=== PATIENT | female | born 1990 | race Two or more races ===

== ENCOUNTER → 2018-08-31 | Outpatient (CLI) | payer OTHER | END | disposition home or self-care (01) | LOC: LAB 11:01 | PROVIDERS: ATTEND Preventive Medicine Preventive Medicine/Occupational Environmental Medicine | DX: Z02.1 Encounter for pre-employment examination (principal) | CPT/HCPCS: 36415; 86706; 86735; 86762; 86765; 86787 ==

== ENCOUNTER → 2019-09-19 | Outpatient (CLI) | payer BC ==
[2019-09-19 15:49] LABS: Basophils # (auto) 0 uL; Basophils % (auto) 0.7 % (0.0-2.0); Eosinophils # (auto) 0.2 uL; Eosinophils % (auto) 2.4 % (0.0-7.0); Hematocrit 43.1 % (36.0-46.0); Hemoglobin 14.3 g/dL (12.2-16.2); Lymphocytes # (auto) 2.5 uL; Lymphocytes % (auto) 36.4 % (10.0-50.0); Mean Corpuscular Hemoglobin 28.2 pg (28.0-32.0); Mean Corpuscular Hgb Conc. 33.2 g/dL (32.0-36.0); Mean Corpuscular Volume 84.8 fL (80.0-100.0); Monocytes # (auto) 0.3 uL; Monocytes % (auto) 4.8 % (0.0-12.0); Neutrophils # (auto) 3.8 uL; Neutrophils % (auto) 55.7 % (37.0-80.0); Platelet Count (auto) 385 10^3/uL (140-450); Red Blood Cells 5.08 10^6/uL (4.0-5.20); Red Cell Distribution Width 12.9 % (11.8-14.3); White Blood Cell 6.8 10^3/uL (4.4-10.8)
[2019-09-19 16:05] LABS: Urine Bacteria FEW /hpf (None Seen); Urine Blood 1+ /uL (Negative); Urine Mucus FEW (None Seen); Urine Specific Gravity 1.028 (1.001-1.035); Urine WBC 2 /hpf (0 - 5)
[2019-09-19 16:08] LABS: Albumin 3.8 g/dL (3.4-5.0)
[2019-09-19 16:15] LABS: Bilirubin, Total 0.4 mg/dL (0.2-1.0); Calcium 9.1 mg/dL (8.5-10.1); Total Protein 8.6 g/dL (6.4-8.2)
== END | disposition home or self-care (01) ==
LOC: LAB 15:25
PROVIDERS: ATTEND Internal Medicine
DX: Z00.00 Encounter for general adult medical examination without abnormal findings (principal); J45.909 Unspecified asthma, uncomplicated
CPT/HCPCS: 36415; 80053; 80061; 81001; 82785; 84439; 84443; 85025; 85379; 85652

== ENCOUNTER → 2020-10-01 | Outpatient (CLI) | payer OTHER | END | disposition home or self-care (01) | LOC: LAB 08:09 | PROVIDERS: ATTEND Physician Assistant | DX: Z20.828 Contact with and (suspected) exposure to other viral communicable diseases (principal) | CPT/HCPCS: C9803; U0003 ==

== ENCOUNTER → 2023-10-14 | Outpatient (CLI) | payer BC ==
[2023-10-14 07:23] LABS: Urine Bacteria FEW /hpf (None Seen); Urine Blood TRACE /uL (Negative); Urine Clarity HAZY (Clear); Urine Color Yellow (Yellow); Urine Mucus FEW (None Seen); Urine Protein, UAD TRACE (Negative); Urine Specific Gravity 1.034 (1.001-1.035); Urine Urobilinogen Normal (Negative); Urine WBC 3 /hpf (0 - 5); Urine pH 5.5 (5.0-8.0)
[2023-10-14 07:24] LABS: Basophils % (auto) 0.6 % (0.0-2.0); Lymphocytes # (auto) 3.1 10 ^3/uL (0.4-5.4)
[2023-10-14 07:27] LABS: Basophils # (auto) 0 10 ^3/uL (0-0.2); Eosinophils # (auto) 0.1 10 ^3/uL (0-0.8); Eosinophils % (auto) 1.6 % (0.0-7.0); Hemoglobin 12.2 g/dL (12.2-16.2); Lymphocytes % (auto) 37.4 % (10.0-50.0); Mean Corpuscular Hemoglobin 24.8 pg (28.0-32.0); Mean Corpuscular Volume 77.5 fL (80.0-100.0); Monocytes # (auto) 0.5 10 ^3/uL (0-1.3); Monocytes % (auto) 5.6 % (0.0-12.0); Neutrophils # (auto) 4.6 10 ^3/uL (1.6-8.6); Neutrophils % (auto) 54.8 % (37.0-80.0); Red Cell Distribution Width 18.5 % (11.8-14.3); White Blood Cell 8.4 10^3/uL (4.4-10.8)
[2023-10-14 07:30] LABS: % Iron Saturation 11.8 % (15-50)
[2023-10-14 07:32] LABS: Alanine Aminotransferase 25 U/L (7-40); Albumin 4.7 g/dL (3.2-4.8); Alkaline Phosphatase 75 U/L (46-116); Anion Gap 11 (5-15); Aspartate Aminotransferase 17 U/L (13-40); BUN/Creatinine Ratio 11.4 (10.0-20.0); Blood Urea Nitrogen 8 mg/dL (9-23); Calcium 9.6 mg/dL (8.5-10.1); Carbon Dioxide 23 mmol/L (20-30); Chloride 103 mmol/L (98-107); Glucose 100 mg/dL (74-106); LDL Cholesterol 105 mg/dL (< 100); Potassium 3.5 mmol/L (3.5-5.1); Sodium 137 mmol/L (136-145); Triglycerides 58 mg/dL (< 150)
[2023-10-14 07:33] LABS: Bilirubin, Total 0.4 mg/dL (0.2-1.0); Cholesterol 157 mg/dL (< 200); HDL Cholesterol 48 mg/dL (40-59); Total Protein 7.9 g/dL (5.7-8.2)
[2023-10-14 07:35] LABS: Free T4 (Free Thyroxine) 1.11 ng/dL (0.89-1.76)
== END | disposition home or self-care (01) ==
LOC: LAB 06:59
PROVIDERS: ATTEND Nurse Practitioner Family
DX: E03.9 Hypothyroidism, unspecified (principal); E66.9 Obesity, unspecified; D50.9 Iron deficiency anemia, unspecified; E78.5 Hyperlipidemia, unspecified
CPT/HCPCS: 36415; 80053; 80061; 81001; 82306; 82672; 83540; 83550; 84144; 84403; 84439; 84443; 85025

== ENCOUNTER → 2023-10-19 | Outpatient (CLI) | payer BC | END | disposition home or self-care (01) | LOC: LAB 06:06 | PROVIDERS: ATTEND Obstetrics & Gynecology | DX: N91.2 Amenorrhea, unspecified (principal) | CPT/HCPCS: 36415; 84144; 84702 ==

== ENCOUNTER → 2023-10-21 | Outpatient (CLI) | payer BC | END | disposition home or self-care (01) | LOC: LAB 15:26 | PROVIDERS: ATTEND Obstetrics & Gynecology | DX: N91.2 Amenorrhea, unspecified (principal) | CPT/HCPCS: 36415; 84702 ==

== ENCOUNTER → 2023-11-20 | Outpatient (CLI) | payer BC ==
[2023-11-20 11:13] LABS: Basophils # (auto) 0 10 ^3/uL (0-0.2); Eosinophils # (auto) 0.1 10 ^3/uL (0-0.8); Eosinophils % (auto) 1.8 % (0.0-7.0); Lymphocytes # (auto) 2.5 10 ^3/uL (0.4-5.4); Monocytes # (auto) 0.4 10 ^3/uL (0-1.3); Monocytes % (auto) 5.4 % (0.0-12.0); Nucleated Red Blood Cells % 0.1 %; White Blood Cell 7.9 10^3/uL (4.4-10.8)
[2023-11-20 11:14] LABS: Basophils % (auto) 0.6 % (0.0-2.0); Hematocrit 41.1 % (36.0-46.0); Hemoglobin 13.5 g/dL (12.2-16.2); Lymphocytes % (auto) 31.8 % (10.0-50.0); Mean Corpuscular Hemoglobin 26.4 pg (28.0-32.0); Mean Corpuscular Volume 80.1 fL (80.0-100.0); Neutrophils # (auto) 4.8 10 ^3/uL (1.6-8.6); Neutrophils % (auto) 60.4 % (37.0-80.0); Red Blood Cells 5.13 10^6/uL (4.0-5.20); Red Cell Distribution Width 17.1 % (11.8-14.3)
[2023-11-20 11:37] LABS: Amphetamine Screen, Urine Neg (NEGATIVE); Barbiturate Scree,Urine Neg (NEGATIVE); Benzodiazephine Screen, Urine Neg (NEGATIVE); Cannabinoid Screen, Urine Neg (NEGATIVE); Cocaine Screen, Urine Neg (NEGATIVE); Opiate Scree,Urine Neg (NEGATIVE); Phencyclidine Screen, Urine Neg (NEGATIVE)
[2023-11-21 09:50] LABS: Varicella Zoster IgG Antibody 1056 index (Immune >165)
[2023-11-21 11:37] LABS: Treponema Pallidum Ab LC Non Reactive (Non Reactive)
[2023-11-22 04:07] LABS: Chlamydia Trachomatis, NAA Negative (Negative); Neisseria gonorrhoeae, NAA Negative (Negative)
== END | disposition home or self-care (01) ==
LOC: LAB 10:25
PROVIDERS: ATTEND Obstetrics & Gynecology
DX: Z31.430 Encounter of female for testing for genetic disease carrier status for procreative management (principal); Z36.0 Encounter for antenatal screening for chromosomal anomalies; Z34.80 Encounter for supervision of other normal pregnancy, unspecified trimester
CPT/HCPCS: 36415; 80307; 83036; 84112; 85025; 86703; 86762; 86787; 86850; 86900; 86901; 87086

== ENCOUNTER → 2023-12-31 | Outpatient (CLI) | payer BC ==
[2024-01-01 07:06] LABS: RPR Non Reactive (Non Reactive)
== END | disposition home or self-care (01) ==
LOC: LAB 13:07
PROVIDERS: ATTEND Obstetrics & Gynecology
DX: Z34.00 Encounter for supervision of normal first pregnancy, unspecified trimester (principal); Z3A.00 Weeks of gestation of pregnancy not specified
CPT/HCPCS: 36415; 86592; 87340

== ENCOUNTER → 2024-03-31 | Outpatient (CLI) | payer BC ==
[2024-03-31 07:58] LABS: Basophils # (auto) 0 10 ^3/uL (0-0.2); Basophils % (auto) 0.2 % (0.0-2.0); Eosinophils # (auto) 0.2 10 ^3/uL (0-0.8); Eosinophils % (auto) 1.8 % (0.0-7.0); Hematocrit 38.2 % (36.0-46.0); Hemoglobin 12.4 g/dL (12.2-16.2); Lymphocytes % (auto) 21.3 % (10.0-50.0); Mean Corpuscular Hemoglobin 27.1 pg (28.0-32.0); Mean Corpuscular Hgb Conc. 32.5 g/dL (32.0-36.0); Mean Corpuscular Volume 83.5 fL (80.0-100.0); Monocytes # (auto) 0.7 10 ^3/uL (0-1.3); Neutrophils # (auto) 6.6 10 ^3/uL (1.6-8.6); Neutrophils % (auto) 69.7 % (37.0-80.0); Red Blood Cells 4.57 10^6/uL (4.0-5.20); Red Cell Distribution Width 13.8 % (11.8-14.3); White Blood Cell 9.5 10^3/uL (4.4-10.8)
[2024-04-01 21:06] LABS: Chlamydia Trachomatis, NAA Negative (Negative); Neisseria gonorrhoeae, NAA Negative (Negative)
== END | disposition home or self-care (01) ==
LOC: LAB 07:37
PROVIDERS: ATTEND Obstetrics & Gynecology
DX: Z34.80 Encounter for supervision of other normal pregnancy, unspecified trimester (principal); Z72.51 High risk heterosexual behavior; Z3A.00 Weeks of gestation of pregnancy not specified
CPT/HCPCS: 36415; 82951; 85025

== ENCOUNTER 2024-04-29 08:00 | Observation (INO) | payer BC ==
[2024-04-29 09:43] LABS: Urine Bacteria FEW /hpf (None Seen); Urine Blood Negative /uL (Negative); Urine Clarity Turbid (Clear); Urine Color Light-Yellow (Yellow); Urine Protein, UAD Negative (Negative); Urine Specific Gravity 1.013 (1.001-1.035); Urine Sperm PRESENT /hpf (None Seen); Urine Urobilinogen Normal (Negative); Urine WBC 3 /hpf (0 - 5)
[2024-04-29 09:45] LABS: Protein, Urine 21.4 mg/dL (0.0-11.9)
[2024-04-29 09:48] LABS: Creatinine, Urine 75.4 mg/dL (30.0-125.0); Urine Protein/Creatinine Ratio 0.28
[2024-04-29 10:04] LABS: Basophils # (auto) 0 10 ^3/uL (0-0.2); Basophils % (auto) 0.3 % (0.0-2.0); Eosinophils # (auto) 0.1 10 ^3/uL (0-0.8); Eosinophils % (auto) 1.4 % (0.0-7.0); Hematocrit 36.5 % (36.0-46.0); Hemoglobin 12.4 g/dL (12.2-16.2); Lymphocytes # (auto) 1.8 10 ^3/uL (0.4-5.4); Lymphocytes % (auto) 21.2 % (10.0-50.0); Mean Corpuscular Hgb Conc. 33.8 g/dL (32.0-36.0); Mean Corpuscular Volume 82.9 fL (80.0-100.0); Monocytes # (auto) 0.5 10 ^3/uL (0-1.3); Monocytes % (auto) 5.3 % (0.0-12.0); Neutrophils # (auto) 6.1 10 ^3/uL (1.6-8.6); Neutrophils % (auto) 71.8 % (37.0-80.0); Nucleated Red Blood Cells % 0.1 %; Red Blood Cells 4.41 10^6/uL (4.0-5.20); White Blood Cell 8.5 10^3/uL (4.4-10.8)
[2024-04-29 10:18] LABS: Alanine Aminotransferase 13 U/L (7-40); Alkaline Phosphatase 102 U/L (46-116); Anion Gap 8 (5-15); Aspartate Aminotransferase 12 U/L (13-40); Calcium 9.6 mg/dL (8.7-10.4); Carbon Dioxide 25 mmol/L (20-30); Chloride 105 mmol/L (98-107); Glucose 83 mg/dL (74-106); Potassium 3.5 mmol/L (3.5-5.1); Sodium 138 mmol/L (136-145)
[2024-04-29 10:19] LABS: Albumin 3.8 g/dL (3.2-4.8); BUN/Creatinine Ratio 11.9 (10.0-20.0); Bilirubin, Total 0.3 mg/dL (0.2-1.0); Blood Urea Nitrogen < 5 mg/dL (9-23); INR 0.93 (0.9-1.15); Prothrombin Time 9.9 sec (9.3-11.8); Total Protein 6.6 g/dL (5.7-8.2)
== END 2024-04-29 10:52 | disposition home or self-care (01) ==
LOC: LDRP 08:00 → UNDOADMOB 08:00 → LDRP 08:06
PROVIDERS: ADMIT Obstetrics & Gynecology; ATTEND Obstetrics & Gynecology
DX: O24.419 Gestational diabetes mellitus in pregnancy, unspecified control (principal); Z3A.33 33 weeks gestation of pregnancy
CPT/HCPCS: 36415; 59025; 76818; 80053; 81001; 81002; 82570; 82948; 82962; 84156; 84550; 85025; 85610; 85730; 94760; G0378

== ENCOUNTER 2024-04-29 19:48 | Observation (INO) | payer BC ==
[2024-04-29 21:11] LABS: Urine Bacteria FEW /hpf (None Seen); Urine Blood Negative /uL (Negative); Urine Clarity Turbid (Clear); Urine Color Light-Yellow (Yellow); Urine Protein, UAD Negative (Negative); Urine Specific Gravity 1.016 (1.001-1.035); Urine Urobilinogen Normal (Negative); Urine WBC 3 /hpf (0 - 5)
[2024-04-29 21:22] LABS: Urine Sperm NONE SEEN /hpf (None Seen)
== END 2024-04-29 21:36 | disposition home or self-care (01) ==
LOC: LDRP 19:48
PROVIDERS: ADMIT Obstetrics & Gynecology; ATTEND Obstetrics & Gynecology
DX: O24.419 Gestational diabetes mellitus in pregnancy, unspecified control (principal); Z3A.33 33 weeks gestation of pregnancy
CPT/HCPCS: 81001; 81002; G0378

== ENCOUNTER 2024-05-01 08:11 | Observation (INO) | payer BC ==
[2024-05-01 09:05] LABS: Protein, Urine 25.9 mg/dL (0.0-11.9)
[2024-05-01 09:08] LABS: Creatinine, Urine 75.11 mg/dL (30.0-125.0); Urine Protein/Creatinine Ratio 0.34
[2024-05-01 09:11] LABS: Urine Bacteria FEW /hpf (None Seen); Urine Blood Negative /uL (Negative); Urine Clarity Turbid (Clear); Urine Color Light-Yellow (Yellow); Urine Protein, UAD TRACE (Negative); Urine Specific Gravity 1.015 (1.001-1.035); Urine Urobilinogen Normal (Negative); Urine WBC 4 /hpf (0 - 5)
[2024-05-01 09:43] LABS: Protein, Urine 14.5 mg/dL (0.0-11.9)
[2024-05-01] MEDS ORDERED: PREN-96 PO (10:37)
== END 2024-05-01 10:45 | disposition home or self-care (01) ==
LOC: LDRP 08:11
PROVIDERS: ADMIT Obstetrics & Gynecology; ATTEND Obstetrics & Gynecology
DX: O13.3 Gestational [pregnancy-induced] hypertension without significant proteinuria, third trimester (principal); Z3A.33 33 weeks gestation of pregnancy; Z79.899 Other long term (current) drug therapy; Z91.018 Allergy to other foods
CPT/HCPCS: 59025; 81001; 81002; 82570; 82948; 82962; 84156; 94760; G0378

== ENCOUNTER 2024-05-03 13:18 | Observation (INO) | payer BC ==
[~2024-05-03 13:18] MED LIST: PREN-96 PO
[2024-05-03 15:33] LABS: Basophils # (auto) 0 10 ^3/uL (0-0.2); Basophils % (auto) 0.3 % (0.0-2.0); Eosinophils # (auto) 0.2 10 ^3/uL (0-0.8); Eosinophils % (auto) 1.6 % (0.0-7.0); Hematocrit 37.1 % (36.0-46.0); Hemoglobin 12.4 g/dL (12.2-16.2); Lymphocytes % (auto) 21.8 % (10.0-50.0); Mean Corpuscular Hemoglobin 27.9 pg (28.0-32.0); Mean Corpuscular Hgb Conc. 33.5 g/dL (32.0-36.0); Mean Corpuscular Volume 83.2 fL (80.0-100.0); Monocytes # (auto) 0.6 10 ^3/uL (0-1.3); Monocytes % (auto) 6.3 % (0.0-12.0); Neutrophils # (auto) 6.5 10 ^3/uL (1.6-8.6); Nucleated Red Blood Cells % 0.1 %; Red Blood Cells 4.46 10^6/uL (4.0-5.20); Red Cell Distribution Width 14.2 % (11.8-14.3); White Blood Cell 9.3 10^3/uL (4.4-10.8)
[2024-05-03 15:47] LABS: INR 0.92 (0.9-1.15); Partial Thromboplastin Time 27.8 SEC (24.5-34.5); Prothrombin Time 9.8 sec (9.3-11.8)
[2024-05-03 15:51] LABS: Alanine Aminotransferase 11 U/L (7-40); Albumin 3.7 g/dL (3.2-4.8); Alkaline Phosphatase 103 U/L (46-116); Anion Gap 4 (5-15); Aspartate Aminotransferase 11 U/L (13-40); Calcium 9.8 mg/dL (8.7-10.4); Carbon Dioxide 25 mmol/L (20-30); Chloride 107 mmol/L (98-107); Glucose 69 mg/dL (74-106); Potassium 3.5 mmol/L (3.5-5.1); Sodium 136 mmol/L (136-145)
[2024-05-03 15:52] LABS: Bilirubin, Total 0.3 mg/dL (0.2-1.0); Total Protein 6.8 g/dL (5.7-8.2)
[2024-05-03 15:58] LABS: BUN/Creatinine Ratio 11.6 (10.0-20.0); Blood Urea Nitrogen < 5 mg/dL (9-23)
[2024-05-03 16:17] LABS: Urine Amorphous Crystal FEW /hpf (None Seen); Urine Bacteria FEW /hpf (None Seen); Urine Blood Negative /uL (Negative); Urine Clarity Clear (Clear); Urine Color Light-Yellow (Yellow); Urine Hyaline Cast FEW /lpf (0 - 2); Urine Protein, UAD Negative (Negative); Urine Specific Gravity 1.009 (1.001-1.035); Urine Urobilinogen Normal (Negative); Urine WBC 3 /hpf (0 - 5); Urine pH 7.5 (5.0-9.0)
[2024-05-03 16:30] LABS: Protein, Urine 8.2 mg/dL (0.0-11.9)
[2024-05-03 16:33] LABS: Creatinine, Urine 38.94 mg/dL (30.0-125.0); Urine Protein/Creatinine Ratio 0.21
== END 2024-05-03 17:15 | disposition home or self-care (01) ==
LOC: UNDOADMOB 13:18 → LDRP 13:18 → UNDODISOB 17:15
PROVIDERS: ADMIT Obstetrics & Gynecology; ATTEND Obstetrics & Gynecology
DX: O13.3 Gestational [pregnancy-induced] hypertension without significant proteinuria, third trimester (principal); O24.419 Gestational diabetes mellitus in pregnancy, unspecified control; O40.3XX0 Polyhydramnios, third trimester, not applicable or unspecified; Z3A.33 33 weeks gestation of pregnancy; Z91.018 Allergy to other foods
CPT/HCPCS: 36415; 59025; 76818; 80053; 81001; 81002; 82570; 84156; 84550; 85025; 85610; 85730; 94760; G0378

== ENCOUNTER 2024-05-06 08:27 | Observation (INO) | payer BC | END 2024-05-06 17:55 | disposition home or self-care (01) | LOC: UNDOADMOB 16:04 → LDRP 16:04 → UNDODISOB 17:55 | PROVIDERS: ADMIT Obstetrics & Gynecology; ATTEND Obstetrics & Gynecology | DX: O24.419 Gestational diabetes mellitus in pregnancy, unspecified control (principal); O40.3XX0 Polyhydramnios, third trimester, not applicable or unspecified; O13.3 Gestational [pregnancy-induced] hypertension without significant proteinuria, third trimester; Z3A.34 34 weeks gestation of pregnancy | CPT/HCPCS: 59025; 76818; 81002; 82948; 94760; G0378 ==

== ENCOUNTER 2024-05-10 11:02 | Observation (INO) | payer BC ==
[~2024-05-10] VITALS: Ht 157.5 cm; Wt 81.6 kg
[2024-05-10 13:17] LABS: Basophils # (auto) 0 10 ^3/uL (0-0.2); Basophils % (auto) 0.2 % (0.0-2.0); Eosinophils # (auto) 0.1 10 ^3/uL (0-0.8); Eosinophils % (auto) 1.5 % (0.0-7.0); Hematocrit 36.6 % (36.0-46.0); Hemoglobin 12.2 g/dL (12.2-16.2); Lymphocytes # (auto) 1.7 10 ^3/uL (0.4-5.4); Lymphocytes % (auto) 21.1 % (10.0-50.0); Mean Corpuscular Hemoglobin 27.6 pg (28.0-32.0); Mean Corpuscular Hgb Conc. 33.3 g/dL (32.0-36.0); Mean Corpuscular Volume 82.9 fL (80.0-100.0); Monocytes # (auto) 0.5 10 ^3/uL (0-1.3); Monocytes % (auto) 6.8 % (0.0-12.0); Neutrophils # (auto) 5.5 10 ^3/uL (1.6-8.6); Neutrophils % (auto) 70.4 % (37.0-80.0); Nucleated Red Blood Cells % 0.1 %; Red Blood Cells 4.41 10^6/uL (4.0-5.20); Red Cell Distribution Width 13.9 % (11.8-14.3); White Blood Cell 7.9 10^3/uL (4.4-10.8)
[2024-05-10 13:33] LABS: Protein, Urine 25.9 mg/dL (0.0-11.9)
[2024-05-10 13:35] LABS: Creatinine, Urine 61.86 mg/dL (30.0-125.0); Urine Protein/Creatinine Ratio 0.42
[2024-05-10 13:37] LABS: Alanine Aminotransferase 12 U/L (7-40); Albumin 3.6 g/dL (3.2-4.8); Alkaline Phosphatase 101 U/L (46-116); Anion Gap 7 (5-15); Aspartate Aminotransferase 11 U/L (13-40); Bilirubin, Total 0.3 mg/dL (0.2-1.0); Calcium 9.7 mg/dL (8.7-10.4); Carbon Dioxide 23 mmol/L (20-30); Chloride 108 mmol/L (98-107); Glucose 93 mg/dL (74-106); Potassium 3.3 mmol/L (3.5-5.1); Sodium 138 mmol/L (136-145); Total Protein 6.5 g/dL (5.7-8.2); Uric Acid 3.2 mg/dL (3.1-7.8)
[2024-05-10 13:39] LABS: BUN/Creatinine Ratio 12.5 (10.0-20.0); Blood Urea Nitrogen < 5 mg/dL (9-23)
[2024-05-10 13:42] LABS: INR 0.92 (0.9-1.15); Prothrombin Time 9.8 sec (9.3-11.8)
[2024-05-10] MEDS: POTASSIUM CHL 20 Meq TABLET PO ONE (14:34)
== END 2024-05-10 14:55 | disposition home or self-care (01) ==
LOC: LDRP 11:02 → UNDOADMOB 11:02 → LDRP 11:09 → UNDODISOB 14:55
PROVIDERS: ADMIT Obstetrics & Gynecology; ATTEND Obstetrics & Gynecology
DX: O24.419 Gestational diabetes mellitus in pregnancy, unspecified control (principal); O40.3XX0 Polyhydramnios, third trimester, not applicable or unspecified; O13.3 Gestational [pregnancy-induced] hypertension without significant proteinuria, third trimester; O14.93 Unspecified pre-eclampsia, third trimester; Z3A.34 34 weeks gestation of pregnancy
CPT/HCPCS: 36415; 59025; 76818; 80053; 81002; 82570; 84156; 84550; 85025; 85610; 85730; G0378

== ENCOUNTER 2024-05-12 09:24 | Observation (INO) | payer BC ==
[2024-05-12 13:15] LABS: Urine Bacteria FEW /hpf (None Seen); Urine Blood Negative /uL (Negative); Urine Clarity Turbid (Clear); Urine Color Yellow (Yellow); Urine Protein, UAD TRACE (Negative); Urine Specific Gravity 1.015 (1.001-1.035); Urine Urobilinogen Normal (Negative); Urine WBC 5 /hpf (0 - 5)
[2024-05-12 13:19] LABS: Protein, Urine 22.3 mg/dL (0.0-11.9)
[2024-05-12 13:22] LABS: Creatinine, Urine 95.02 mg/dL (30.0-125.0); Urine Protein/Creatinine Ratio 0.23
[2024-05-12 13:27] LABS: Protein, Urine 14.6 mg/dL (0.0-11.9)
[2024-05-12 14:18] LABS: 24 Hr. Total Protein, Urine 379.6 mg/24 Hr (<149.1)
[2024-05-12] MEDS ORDERED: LABE200T33 PO (15:03)
== END 2024-05-12 15:10 | disposition home or self-care (01) ==
LOC: LDRP 12:39 → UNDOADMOB 12:39 → LDRP 12:53 → UNDODISOB 15:10
PROVIDERS: ADMIT Obstetrics & Gynecology; ATTEND Obstetrics & Gynecology
DX: O13.3 Gestational [pregnancy-induced] hypertension without significant proteinuria, third trimester (principal); O24.419 Gestational diabetes mellitus in pregnancy, unspecified control; O40.3XX0 Polyhydramnios, third trimester, not applicable or unspecified; Z3A.35 35 weeks gestation of pregnancy
CPT/HCPCS: 59025; 76818; 81001; 81002; 82570; 82948; 84156; 94760; G0378

== ENCOUNTER 2024-05-13 08:21 | Observation (INO) | payer BC ==
[~2024-05-13 08:21] MED LIST changes: +LABE200T33 PO
== END 2024-05-13 10:35 | disposition home or self-care (01) ==
LOC: LDRP 09:21 → UNDOADMOB 09:21 → LDRP 09:28
PROVIDERS: ADMIT Obstetrics & Gynecology; ATTEND Obstetrics & Gynecology
DX: O13.3 Gestational [pregnancy-induced] hypertension without significant proteinuria, third trimester (principal); Z3A.35 35 weeks gestation of pregnancy
CPT/HCPCS: 59025; 81002; G0378

== ENCOUNTER 2024-05-16 08:05 | Observation (INO) | payer BC ==
[~2024-05-16] VITALS: Ht 63 cm; Wt 94.8 kg
== END 2024-05-16 09:43 | disposition home or self-care (01) ==
LOC: LDRP 08:05 → UNDOADMOB 08:05 → LDRP 08:18
PROVIDERS: ADMIT Obstetrics & Gynecology; ATTEND Obstetrics & Gynecology
DX: O13.3 Gestational [pregnancy-induced] hypertension without significant proteinuria, third trimester (principal); O24.419 Gestational diabetes mellitus in pregnancy, unspecified control; O40.3XX0 Polyhydramnios, third trimester, not applicable or unspecified; Z3A.35 35 weeks gestation of pregnancy
CPT/HCPCS: 59025; 76818; 81002; 82948; 82962; 94760; G0378

== ENCOUNTER 2024-05-19 08:04 | Observation (INO) | payer BC ==
[~2024-05-19] VITALS: Ht 160 cm; Wt 95.3 kg
== END 2024-05-19 09:35 | disposition home or self-care (01) ==
LOC: LDRP 08:04
PROVIDERS: ADMIT Obstetrics & Gynecology; ATTEND Obstetrics & Gynecology
DX: O24.419 Gestational diabetes mellitus in pregnancy, unspecified control (principal); O13.3 Gestational [pregnancy-induced] hypertension without significant proteinuria, third trimester; O40.3XX0 Polyhydramnios, third trimester, not applicable or unspecified; Z3A.36 36 weeks gestation of pregnancy
CPT/HCPCS: 59025; 76818; 81002; 82948; 82962; 94760; G0378

== ENCOUNTER 2024-05-23 08:20 | Observation (INO) | payer BC | END 2024-05-23 11:31 | disposition home or self-care (01) | LOC: LDRP 10:00 → UNDOADMOB 10:00 → LDRP 10:03 → UNDODISOB 11:31 | PROVIDERS: ADMIT Obstetrics & Gynecology; ATTEND Obstetrics & Gynecology | DX: O40.3XX0 Polyhydramnios, third trimester, not applicable or unspecified (principal); O13.3 Gestational [pregnancy-induced] hypertension without significant proteinuria, third trimester; O24.419 Gestational diabetes mellitus in pregnancy, unspecified control; Z3A.36 36 weeks gestation of pregnancy | CPT/HCPCS: 59025; 76818; 81002; 82948; 82962; 94760; G0378 ==

== ENCOUNTER → 2024-05-23 | Outpatient (CLI) | payer BC ==
[2024-05-23 12:09] LABS: Basophils # (auto) 0 10 ^3/uL (0-0.2); Basophils % (auto) 0.2 % (0.0-2.0); Eosinophils # (auto) 0.1 10 ^3/uL (0-0.8); Eosinophils % (auto) 0.9 % (0.0-7.0); Hematocrit 36.2 % (36.0-46.0); Hemoglobin 12.4 g/dL (12.2-16.2); Lymphocytes # (auto) 1.8 10 ^3/uL (0.4-5.4); Lymphocytes % (auto) 22.3 % (10.0-50.0); Mean Corpuscular Hemoglobin 28.6 pg (28.0-32.0); Mean Corpuscular Hgb Conc. 34.2 g/dL (32.0-36.0); Mean Corpuscular Volume 83.5 fL (80.0-100.0); Monocytes # (auto) 0.5 10 ^3/uL (0-1.3); Monocytes % (auto) 5.5 % (0.0-12.0); Neutrophils # (auto) 5.9 10 ^3/uL (1.6-8.6); Neutrophils % (auto) 71.1 % (37.0-80.0); Red Blood Cells 4.34 10^6/uL (4.0-5.20); Red Cell Distribution Width 14.7 % (11.8-14.3); White Blood Cell 8.3 10^3/uL (4.4-10.8)
[2024-05-24 08:06] LABS: RPR Non Reactive (Non Reactive)
[2024-05-24 13:07] LABS: Chlamydia Trachomatis, NAA Negative (Negative); Neisseria gonorrhoeae, NAA Negative (Negative)
== END | disposition home or self-care (01) ==
LOC: LAB 11:44
PROVIDERS: ATTEND Obstetrics & Gynecology
DX: Z11.3 Encounter for screening for infections with a predominantly sexual mode of transmission (principal); Z72.51 High risk heterosexual behavior
CPT/HCPCS: 36415; 85025; 86592

== ENCOUNTER 2024-05-26 11:09 | Observation (INO) | payer BC ==
[~2024-05-26] VITALS: Ht 162.6 cm; Wt 99.8 kg
== END 2024-05-26 13:03 | disposition home or self-care (01) ==
LOC: UNDOADMOB 11:09 → LDRP 11:09 → UNDODISOB 13:03
PROVIDERS: ADMIT Obstetrics & Gynecology; ATTEND Obstetrics & Gynecology
DX: O13.3 Gestational [pregnancy-induced] hypertension without significant proteinuria, third trimester (principal); O24.419 Gestational diabetes mellitus in pregnancy, unspecified control; O26.893 Other specified pregnancy related conditions, third trimester; R51.9 Headache, unspecified; Z3A.37 37 weeks gestation of pregnancy
CPT/HCPCS: 59025; 76818; 81002; 82948; 82962; 94760; G0378

== ENCOUNTER 2024-05-30 09:17 | Observation (INO) | payer BC | END 2024-05-30 12:26 | disposition home or self-care (01) | LOC: UNDOADMOB 09:17 → LDRP 09:17 → UNDODISOB 12:26 | PROVIDERS: ADMIT Obstetrics & Gynecology; ATTEND Obstetrics & Gynecology | DX: O13.3 Gestational [pregnancy-induced] hypertension without significant proteinuria, third trimester (principal); O24.420 Gestational diabetes mellitus in childbirth, diet controlled; Z3A.37 37 weeks gestation of pregnancy; Z79.899 Other long term (current) drug therapy | CPT/HCPCS: 59025; 76818; 81002; 82948; 82962; 94760; G0378 ==

== ENCOUNTER 2024-06-02 08:07 | Observation (INO) | payer BC ==
[2024-06-02 10:34] LABS: Basophils # (auto) 0 10 ^3/uL (0-0.2); Basophils % (auto) 0.3 % (0.0-2.0); Eosinophils # (auto) 0.1 10 ^3/uL (0-0.8); Eosinophils % (auto) 1.2 % (0.0-7.0); Hematocrit 36.7 % (36.0-46.0); Hemoglobin 12.4 g/dL (12.2-16.2); Lymphocytes # (auto) 1.8 10 ^3/uL (0.4-5.4); Lymphocytes % (auto) 25.1 % (10.0-50.0); Mean Corpuscular Hemoglobin 28.1 pg (28.0-32.0); Mean Corpuscular Hgb Conc. 33.8 g/dL (32.0-36.0); Mean Corpuscular Volume 83.1 fL (80.0-100.0); Monocytes # (auto) 0.5 10 ^3/uL (0-1.3); Monocytes % (auto) 6.4 % (0.0-12.0); Neutrophils # (auto) 4.9 10 ^3/uL (1.6-8.6); Red Blood Cells 4.41 10^6/uL (4.0-5.20); Red Cell Distribution Width 14.4 % (11.8-14.3); White Blood Cell 7.3 10^3/uL (4.4-10.8)
[2024-06-02 10:50] LABS: Alanine Aminotransferase 13 U/L (7-40); Albumin 3.9 g/dL (3.2-4.8); Alkaline Phosphatase 118 U/L (46-116); Anion Gap 7 (5-15); Aspartate Aminotransferase 15 U/L (13-40); BUN/Creatinine Ratio 11.6 (10.0-20.0); Blood Urea Nitrogen 5 mg/dL (9-23); Calcium 10.2 mg/dL (8.7-10.4); Carbon Dioxide 23 mmol/L (20-30); Chloride 106 mmol/L (98-107); Glucose 83 mg/dL (74-106); Potassium 3.8 mmol/L (3.5-5.1); Sodium 136 mmol/L (136-145)
[2024-06-02 10:51] LABS: Bilirubin, Total 0.3 mg/dL (0.2-1.0); Total Protein 6.5 g/dL (5.7-8.2)
[2024-06-02 10:51] LABS: Urine Bacteria FEW /hpf (None Seen); Urine Blood Negative /uL (Negative); Urine Clarity Turbid (Clear); Urine Color Yellow (Yellow); Urine Mucus FEW (None Seen); Urine Protein, UAD 1+ (Negative); Urine Specific Gravity 1.019 (1.001-1.035); Urine Urobilinogen Normal (Negative); Urine WBC 14 /hpf (0 - 5); Urine pH 6.5 (5.0-9.0)
[2024-06-02 10:56] LABS: INR 0.92 (0.9-1.15); Partial Thromboplastin Time 27.7 SEC (24.5-34.5); Prothrombin Time 9.8 sec (9.3-11.8)
[2024-06-02 11:06] LABS: Protein, Urine 38.7 mg/dL (0.0-11.9)
[2024-06-02 11:09] LABS: Creatinine, Urine 127.71 mg/dL (30.0-125.0); Urine Protein/Creatinine Ratio 0.3
== END 2024-06-02 11:55 | disposition home or self-care (01) ==
LOC: LDRP 08:07 → UNDOADMOB 08:07 → LDRP 08:24
PROVIDERS: ADMIT Obstetrics & Gynecology; ATTEND Obstetrics & Gynecology
DX: O24.419 Gestational diabetes mellitus in pregnancy, unspecified control (principal); O13.3 Gestational [pregnancy-induced] hypertension without significant proteinuria, third trimester; Z3A.38 38 weeks gestation of pregnancy
CPT/HCPCS: 36415; 59025; 76818; 80053; 81001; 81002; 82570; 82948; 82962; 84156; 84550; 85025; 85610; 85730; 94760; G0378

== ENCOUNTER 2024-06-04 10:22 | Observation (INO) | payer BC | END 2024-06-04 11:51 | disposition home or self-care (01) | LOC: LDRP 10:22 | PROVIDERS: ADMIT Obstetrics & Gynecology; ATTEND Obstetrics & Gynecology | DX: O13.3 Gestational [pregnancy-induced] hypertension without significant proteinuria, third trimester (principal); O62.9 Abnormality of forces of labor, unspecified; Z3A.38 38 weeks gestation of pregnancy; Z79.899 Other long term (current) drug therapy | CPT/HCPCS: 59025; 81002; 82962; G0378 ==

== ENCOUNTER 2024-06-06 08:08 | Observation (INO) | payer BC ==
[2024-06-07] MEDS ORDERED: IBUP-1456 PO (19:04)
[2024-06-07] MEDS ORDERED: DOCU-94 PO (19:04)
[2024-06-07] MEDS ORDERED: HYDR-4902 PO (19:04)
== END 2024-06-06 10:25 | disposition home or self-care (01) ==
LOC: LDRP 08:08 → UNDOADMOB 08:08 → LDRP 08:22 → UNDODISOB 10:25
PROVIDERS: ADMIT Obstetrics & Gynecology; ATTEND Obstetrics & Gynecology
DX: O13.3 Gestational [pregnancy-induced] hypertension without significant proteinuria, third trimester (principal); O24.419 Gestational diabetes mellitus in pregnancy, unspecified control; O30.003 Twin pregnancy, unspecified number of placenta and unspecified number of amniotic sacs, third trimester; Z3A.38 38 weeks gestation of pregnancy
CPT/HCPCS: 59025; 76818; 81002; 82962; 94760; G0378

== ENCOUNTER 2024-06-07 16:25 | Inpatient (IN) | payer BC ==
[~2024-06-07] VITALS: Ht 160 cm; Wt 96.2 kg
[2024-06-07] MEDS ORDERED: miSOPROStol 50 MCG per PRE-CUT 1/2 TAB PO PRN (16:45)
[2024-06-07] MEDS ORDERED: LIDOCAINE 2%HCL (LOCAL ANESTH.) INJ 20ML MDV IJ PRN (16:45)
[2024-06-07] MEDS ORDERED: DERMOPLAST 60ML BOTTLE TOP PRN (16:45)
[2024-06-07] MEDS ORDERED: PHISODERM TOP SOLN 240ML BTL TOP PRN (16:45)
[2024-06-07] MEDS ORDERED: WITCH HAZEL-GLYCERIN PAD TOP PRN (16:45)
[2024-06-07] MEDS ORDERED: BUTORPHANOL TARTRATE 2 MG/1 ML VIAL IV PRN ×2 (16:45)
[2024-06-07] MEDS ORDERED: hydrALAZINE HCL 20 MG/ML VL IV PRN (17:15)
[2024-06-07 18:32] LABS: Alanine Aminotransferase 14 U/L (7-40); Albumin 3.7 g/dL (3.2-4.8); Alkaline Phosphatase 117 U/L (46-116); Anion Gap 7 (5-15); Aspartate Aminotransferase 15 U/L (13-40); BUN/Creatinine Ratio 15.6 (10.0-20.0); Basophils # (auto) 0 10 ^3/uL (0-0.2); Basophils % (auto) 0.2 % (0.0-2.0); Blood Urea Nitrogen 7 mg/dL (9-23); Calcium 9.6 mg/dL (8.7-10.4); Carbon Dioxide 23 mmol/L (20-30); Chloride 107 mmol/L (98-107); Eosinophils # (auto) 0.1 10 ^3/uL (0-0.8); Eosinophils % (auto) 1.4 % (0.0-7.0); Glucose 82 mg/dL (74-106); Hematocrit 34.8 % (36.0-46.0); Hemoglobin 11.9 g/dL (12.2-16.2); Lymphocytes % (auto) 24.4 % (10.0-50.0); Mean Corpuscular Hemoglobin 28.6 pg (28.0-32.0); Mean Corpuscular Hgb Conc. 34.2 g/dL (32.0-36.0); Mean Corpuscular Volume 83.5 fL (80.0-100.0); Monocytes # (auto) 0.7 10 ^3/uL (0-1.3); Monocytes % (auto) 8.1 % (0.0-12.0); Neutrophils # (auto) 5.5 10 ^3/uL (1.6-8.6); Neutrophils % (auto) 65.9 % (37.0-80.0); Nucleated Red Blood Cells % 0.2 %; Potassium 3.7 mmol/L (3.5-5.1); Red Blood Cells 4.17 10^6/uL (4.0-5.20); Red Cell Distribution Width 14.5 % (11.8-14.3); Sodium 137 mmol/L (136-145); White Blood Cell 8.4 10^3/uL (4.4-10.8)
[2024-06-07 18:33] LABS: Bilirubin, Total 0.3 mg/dL (0.2-1.0); Total Protein 6.5 g/dL (5.7-8.2)
[2024-06-07 18:39] LABS: Urine Amorphous Crystal FEW /hpf (None Seen); Urine Bacteria FEW /hpf (None Seen); Urine Blood Negative /uL (Negative); Urine Budding Yeast OCCASIONAL /hpf (None Seen); Urine Clarity Turbid (Clear); Urine Color Light-Yellow (Yellow); Urine Protein, UAD Negative (Negative); Urine Specific Gravity 1.017 (1.001-1.035); Urine Urobilinogen Normal (Negative); Urine WBC 1 /hpf (0 - 5)
[2024-06-07 18:45] LABS: INR 0.9 (0.9-1.15); Partial Thromboplastin Time 27.5 SEC (24.5-34.5); Prothrombin Time 9.6 sec (9.3-11.8)
[2024-06-07 18:51] LABS: Amphetamine Screen, Urine Neg (NEGATIVE); Barbiturate Scree,Urine Neg (NEGATIVE); Benzodiazephine Screen, Urine Neg (NEGATIVE); Cocaine Screen, Urine Neg (NEGATIVE)
[2024-06-07 18:52] LABS: Cannabinoid Screen, Urine Neg (NEGATIVE); Creatinine, Urine 75.76 mg/dL (30.0-125.0); Opiate Scree,Urine Neg (NEGATIVE); Phencyclidine Screen, Urine Neg (NEGATIVE); Urine Protein/Creatinine Ratio 0.24
[2024-06-07] MEDS ORDERED: MORPHINE SULF PF 5 MG/10 ML VIAL ONE (18:54)
[2024-06-07] MEDS ORDERED: DexAMETHasone SOD PHOS 10MG/1ML VIAL INJ ONE (18:54)
[2024-06-07] MEDS ORDERED: fentaNYL CITRATE 100 MCG/2 ML VL ONE (18:54)
[2024-06-07] MEDS ORDERED: PROPOFOL 10 MG/ML 20 ML IV ONE (18:54)
[2024-06-07] MEDS ORDERED: ONDANSETRON HCL 4 MG/2 ML VIAL ONE (18:54)
[2024-06-07] MEDS ORDERED: SODIUM CHLORIDE LOCK 10 ML ONE (18:54)
[2024-06-07] MEDS ORDERED: MIDAZOLAM HCL 2MG/2ML 2ml VIAL (1mg/ml) ONE (18:54)
[2024-06-07] MEDS ORDERED: EPINEPHrine HCL 1 MG/1 ML AMP ONE (18:54)
[2024-06-07] MEDS: BUPIVACAINE 0.5% P/F INJ 10 ML VIAL ONE (19:01)
[2024-06-07] MEDS ORDERED: IBUP-1456 PO (19:04)
[2024-06-07] MEDS ORDERED: HYDR-4902 PO (19:04)
[2024-06-07] MEDS ORDERED: DOCU-94 PO (19:04)
[2024-06-07] MEDS: ceFAZolin 2 GM/D5W50ml 50 ML IV ONE (19:11)
[2024-06-07] MEDS: LACT. RINGERS/OXYTOCIN 20UNITS 1,000 ML IV ONE ×2 (19:15→23:22)
[2024-06-07] MEDS: GUM (CHEWING) 1 GUM CHEW CHEW ONE (19:15)
[2024-06-07] MEDS ORDERED: ONDANSETRON HCL 4 MG/2 ML VIAL IV PRN ×2 (19:15→23:15)
[2024-06-07] MEDS: ACCU-CHEK COMFORT CURVE STRIP VI SCH (20:00)
[2024-06-07] MEDS: LABETALOL HCL 200 MG TAB PO SCH (20:00)
[2024-06-07 20:41] VITALS: RESP 13; O2SAT 97
[2024-06-07] MEDS ORDERED: diphenhdrAMINE HCL 50 MG/1 ML VL IV PRN (21:00)
[2024-06-07] MEDS ORDERED: fentaNYL CITRATE 100 MCG/2 ML VL IV PRN (21:00)
[2024-06-07] MEDS: ACCU-CHEK COMFORT CURVE STRIP VI ONE (21:00)
[2024-06-07] MEDS ORDERED: MORPHINE SULFATE INJ 2 MG/ml SYRG IV PRN (21:00)
[2024-06-07] MEDS ORDERED: NALOXONE HCL 0.4 MG/ML VIAL IV PRN (21:00)
[2024-06-07] MEDS ORDERED: KETOROLAC TROMETH 30 MG/ML 1ML VIAL IV ONE (21:00)
[2024-06-07] MEDS ORDERED: HYDROmorphone HCL 2 MG/ML VL/or syr IV PRN ×2 (21:00)
[2024-06-07] MEDS ORDERED: MORPHINE SULFATE 4 MG/ML SYR/VIAL IV PRN (23:15)
[2024-06-07] MEDS: LACTATED RINGER'S 1,000 ML IV SCH (23:21)
[2024-06-07 23:45] LABS: Basophils # (auto) 0 10 ^3/uL (0-0.2); Basophils % (auto) 0.2 % (0.0-2.0); Eosinophils # (auto) 0.1 10 ^3/uL (0-0.8); Eosinophils % (auto) 0.6 % (0.0-7.0); Hematocrit 34.4 % (36.0-46.0); Hemoglobin 11.6 g/dL (12.2-16.2); Lymphocytes # (auto) 1.9 10 ^3/uL (0.4-5.4); Lymphocytes % (auto) 15.5 % (10.0-50.0); Mean Corpuscular Hemoglobin 28.5 pg (28.0-32.0); Mean Corpuscular Hgb Conc. 33.8 g/dL (32.0-36.0); Mean Corpuscular Volume 84.3 fL (80.0-100.0); Monocytes # (auto) 0.5 10 ^3/uL (0-1.3); Monocytes % (auto) 4.4 % (0.0-12.0); Neutrophils # (auto) 9.6 10 ^3/uL (1.6-8.6); Neutrophils % (auto) 79.3 % (37.0-80.0); Red Blood Cells 4.08 10^6/uL (4.0-5.20); Red Cell Distribution Width 14.5 % (11.8-14.3); White Blood Cell 12.2 10^3/uL (4.4-10.8)
[2024-06-08] VITALS (7 sets, daily range): BP systolic 109–146; BP diastolic 59–90; PULSE 80–134; RESP 16–20; TEMP 97.9–98.8; O2SAT 94–98
[2024-06-08] MEDS: ceFAZolin 1GM/50ML 50 ML IV SCH ×2 (03:26→11:29)
[2024-06-08] MEDS: ACETAMINOPHEN IV 1000 MG/100ML (10MG/ML) IV PRN (04:13)
[2024-06-08 06:57] LABS: Basophils # (auto) 0 10 ^3/uL (0-0.2); Basophils % (auto) 0.3 % (0.0-2.0); Eosinophils # (auto) 0.1 10 ^3/uL (0-0.8); Eosinophils % (auto) 1.1 % (0.0-7.0); Hematocrit 31.4 % (36.0-46.0); Hemoglobin 10.9 g/dL (12.2-16.2); Lymphocytes # (auto) 1.7 10 ^3/uL (0.4-5.4); Lymphocytes % (auto) 18.9 % (10.0-50.0); Mean Corpuscular Hemoglobin 29.2 pg (28.0-32.0); Mean Corpuscular Hgb Conc. 34.7 g/dL (32.0-36.0); Mean Corpuscular Volume 84.3 fL (80.0-100.0); Monocytes # (auto) 0.5 10 ^3/uL (0-1.3); Monocytes % (auto) 5.8 % (0.0-12.0); Neutrophils # (auto) 6.5 10 ^3/uL (1.6-8.6); Neutrophils % (auto) 73.9 % (37.0-80.0); Red Blood Cells 3.73 10^6/uL (4.0-5.20); Red Cell Distribution Width 14.6 % (11.8-14.3); White Blood Cell 8.8 10^3/uL (4.4-10.8)
[2024-06-08] MEDS ORDERED: BISACODYL 10 MG RECT SUPP PR PRN (08:00)
[2024-06-08] MEDS ORDERED: HYDROcodone-ACET 5/325MG TAB PO PRN (08:00)
[2024-06-08] MEDS: IBUPROFEN 800 MG TAB PO PRN (09:09)
[2024-06-08] MEDS: DOCUSATE CALCIUM 240 MG CAP PO SCH (11:29)
[2024-06-08] MEDS: SIMETHICONE 80 MG CHEWABLE TABLET PO SCH (11:30)
[2024-06-08] MEDS: DOCUSATE SOD 100 MG CAP PO SCH (11:30)
[2024-06-08] MEDS: METOCLOPRAMIDE HCL 5MG/ml INJ 2ml VIAL IV ONE (20:47)
[2024-06-08] MEDS: LACTATED RINGER'S 1,000 ML IV SCH (20:48)
[2024-06-08] MEDS ORDERED: LABE100T7 PO (21:37)
[2024-06-08] MEDS ORDERED: PREN-96 PO (21:37)
[2024-06-08] MEDS: HYDROcodone-ACET 5/325MG TAB PO PRN (22:51)
[2024-06-09 03:08] VITALS: BP 132/74; PULSE 74; RESP 16; TEMP 98.2; O2SAT 100
[2024-06-09 07:00] VITALS: BP 127/78; PULSE 101; RESP 16; TEMP 97.9; O2SAT 95
[2024-06-09 07:06] LABS: RPR Non Reactive (Non Reactive)
[2024-06-09 11:15] VITALS: BP 115/65; PULSE 105; RESP 18; TEMP 97.9; O2SAT 95
[2024-06-09 15:00] VITALS: BP 121/65; PULSE 100; RESP 18; TEMP 98.3; O2SAT 97
[2024-06-09] MEDS: ACETAMINOPHEN 325 MG TAB PO PRN (17:47)
[2024-06-09 19:04] VITALS: BP 122/71; PULSE 104; RESP 16; TEMP 98.2; O2SAT 96
[2024-06-09 20:41] VITALS: BP 122/71; PULSE 104; RESP 16; TEMP 98.2; O2SAT 96
== END 2024-06-09 20:41 | disposition home or self-care (01) | DRG 788 ==
LOC: LDRP 16:25
PROVIDERS: ADMIT Obstetrics & Gynecology; ATTEND Obstetrics & Gynecology
PROC: 10D00Z1 Extraction of Products of Conception, Low, Open Approach (ICD-10-PCS; principal; 2024-06-07 19:11)
DX: O14.94 Unspecified pre-eclampsia, complicating childbirth (principal); O24.420 Gestational diabetes mellitus in childbirth, diet controlled; O32.2XX0 Maternal care for transverse and oblique lie, not applicable or unspecified; O77.0 Labor and delivery complicated by meconium in amniotic fluid; O13.4 Gestational [pregnancy-induced] hypertension without significant proteinuria, complicating childbirth; Z37.0 Single live birth; Z3A.38 38 weeks gestation of pregnancy
CPT/HCPCS: 36415; 59025; 80053; 80307; 81001; 82570; 84156; 84550; 85025; 85610; 85730; 86592; 86703; 86803; 86850; 86900; 86901; 94760; 94762; 96360; 96361; 96366; G0378; J0131; J0171; J1100; J2250; J2405; J2704; J3490

== ENCOUNTER → 2024-08-18 | Outpatient (CLI) | payer BC ==
[~2024-08-18] MED LIST changes: +DOCU-94 PO; +HYDR-4902 PO; +IBUP-1456 PO; +LABE100T7 PO
== END | disposition home or self-care (01) ==
LOC: LAB 06:40
PROVIDERS: ATTEND Obstetrics & Gynecology
DX: Z39.2 Encounter for routine postpartum follow-up (principal)
CPT/HCPCS: 82951

== ENCOUNTER 2025-04-28 08:26 | Outpatient (CLI) | payer BC ==
[2025-04-28 09:27] LABS: Basophils # (auto) 0.1 10 ^3/uL (0-0.2); Basophils % (auto) 0.8 % (0.0-2.0); Eosinophils # (auto) 0.2 10 ^3/uL (0-0.8); Eosinophils % (auto) 2.9 % (0.0-7.0); Hematocrit 42.3 % (36.0-46.0); Hemoglobin 14.2 g/dL (12.2-16.2); Lymphocytes # (auto) 2.4 10 ^3/uL (0.4-5.4); Lymphocytes % (auto) 32.7 % (10.0-50.0); Mean Corpuscular Hgb Conc. 33.6 g/dL (32.0-36.0); Mean Corpuscular Volume 83.3 fL (80.0-100.0); Monocytes # (auto) 0.3 10 ^3/uL (0-1.3); Monocytes % (auto) 4.6 % (0.0-12.0); Neutrophils # (auto) 4.3 10 ^3/uL (1.6-8.6); Platelet Count (auto) 312 10^3/uL (140-450); Red Blood Cells 5.08 10^6/uL (4.0-5.20); Red Cell Distribution Width 13.5 % (11.8-14.3); White Blood Cell 7.2 10^3/uL (4.4-10.8)
[2025-04-28 09:58] LABS: Thyroid Stimulating Hormone 2.41 uIU/mL (0.55-4.78)
[2025-04-28 10:08] LABS: Amphetamine Screen, Urine Neg (NEGATIVE); Barbiturate Scree,Urine Neg (NEGATIVE); Benzodiazephine Screen, Urine Neg (NEGATIVE); Beta HCG, Quantitative 17628.5 mIU/mL (1.5-4.2); Cannabinoid Screen, Urine Neg (NEGATIVE); Cocaine Screen, Urine Neg (NEGATIVE); Opiate Scree,Urine Neg (NEGATIVE); Phencyclidine Screen, Urine Neg (NEGATIVE)
[2025-04-30 04:06] LABS: Chlamydia Trachomatis, NAA Negative (Negative); Neisseria gonorrhoeae, NAA Negative (Negative)
== END 2025-04-28 17:00 | disposition home or self-care (01) ==
LOC: LAB 08:26
PROVIDERS: ATTEND Obstetrics & Gynecology
DX: Z34.83 Encounter for supervision of other normal pregnancy, third trimester (principal); Z72.51 High risk heterosexual behavior; Z3A.00 Weeks of gestation of pregnancy not specified; Z79.899 Other long term (current) drug therapy
CPT/HCPCS: 36415; 80307; 82951; 83036; 84144; 84443; 84702; 85025; 86703; 86762; 86780; 86850; 86900; 86901; 87086; 87340

== ENCOUNTER → 2025-05-18 | Outpatient (CLI) | payer BC | END | disposition home or self-care (01) | LOC: LAB 11:58 | DX: O03.9 Complete or unspecified spontaneous abortion without complication (principal) | CPT/HCPCS: 36415; 84144; 84702 ==

== ENCOUNTER 2025-05-22 10:03 | Outpatient (CLI) | payer BC | END 2025-05-22 17:00 | disposition home or self-care (01) | LOC: LAB 10:03 | DX: O03.9 Complete or unspecified spontaneous abortion without complication (principal); Z3A.00 Weeks of gestation of pregnancy not specified | CPT/HCPCS: 36415; 84144; 84702 ==